=== PATIENT | male | born 1985 | race Caucasian/White ===

== ENCOUNTER → 2020-08-06 12:54 | Outpatient (CLI) | payer OTHER, SELFPAY ==
--- NOTE | ~2020-08-06 | XR_ITS ---
XR ribs RT 2V DATE: 08/06/2020 13:20 INDICATION: Anterior right chest lump in line with nipple and xiphoid process TECHNIQUE: 3 views COMPARISON: None FINDINGS: No right rib fracture or bone destruction is evident. The right lung is clear. No right ple ural effusion or pneumothorax. IMPRESSION: Negative right ribs Reviewed, dictated and finalized at location A. WORKER IMPRESSION: Negative right ribs
== END ==
PROVIDERS: PCP Nurse Practitioner Family; Visit Provider Nurse Practitioner Family
DX: N64.59 Other signs and symptoms in breast (principal)
CPT/HCPCS: 71100

== ENCOUNTER 2021-01-12 12:23 | Emergency (ER) | payer OTHER, SELFPAY ==
--- NOTE | ~2021-01-12 | XR_ITS ---
[id number] DATE: 01/12/2021 13:02 INDICATION: Fall against within pole. Proximal lateral rib pain. TECHNIQUE: PA chest. 3 views of the left ribs. COMPARISON: None FINDINGS: No left rib fracture is evident. Normal heart size. No hilar or mediastinal enlargement. The lungs are clear of infiltrate or consolid ation. No pleural effusion or pulmonary vascular congestion or pneumothorax. Included skeletal struct ures are unremarkable. IMPRESSION: Negative Reviewed, dictated and finalized at [facility]. Reviewed, dictated and finalized at location B. IMPRESSION: Negative
[2021-01-12 12:35] VITALS: BP 126/85; PULSE 69; RESP 16; TEMP 37.2; O2SAT 100
--- NOTE | 2021-01-12 13:19 | ED.FALL ---
HPI - Fall General Chief Complaint: Fall Stated Complaint: Pain on left side under Arm Time Seen by Provider: 01/12/21 13:20 Source: patient and RN notes reviewed Mode of arrival: ambulatory Limitations: no limitations History of Present Illness HPI Narrative: 35-year-old male presents with concern for left rib pain. Reports while working yesterday he slipped down a hill and landed onto a pole in the ground hitting his left rib area. He reports pain with deep breathing. He denies bruising, open skin, deformity, trouble breathing, cough. He denies intervention. complaint: fall Related Data Home Medications Medication Instructions Recorded Confirmed No Home Medications 01/12/21 01/12/21 Allergies Allergy/AdvReac Type Severity Reaction Status Date / Time No Known Allergies Allergy Verified 01/12/21 12:48 Review of Systems Review of Systems: CONSTITUTIONAL: Denies malaise, chills, sweats, or fever. CARDIOVASCULAR: Denies chest pain, palpitations, or edema. RESPIRATORY: Denies cough or dyspnea. SKIN: Denies lacerations, abrasions MUSCULOSKELETAL: Reports left rib pain with deep breathing All systems reviewed & are unremarkable except as noted in HPI and below PMFSH Comments At time of signature, agree with nursing past medical, surgical, social and family history. There is no relevant family history pertinent to the presenting complaint Exam Narrative: GENERAL: Well-appearing, well-nourished, and in no acute distress. HEAD: Normocephalic, atraumatic. EYES: PERRLA, conjunctivae clear ENT: Mucous membranes moist. NECK: Supple. CHEST: No respiratory distress. Clear to auscultation. No bony deformities, no asymmetry. Speaks in full sentences. No rib tenderness to palpation HEART: Regular rate and rhythm. No murmur heard. SKIN: Warm, dry, no rash. No erythema, ecchymosis noted to the left ribs NEURO: Alert and oriented x3. PSYCH: Normal mood and affect Course Course Emergency Course: Patient is aware of diagnosis, understands and agrees to treatment plan. Anticipatory guidance given. Patient agrees to follow-up as directed and is aware of reasons to seek care at the emergency department. Portions of this record may have been created with voice recognition software Vital Signs Vital signs: Vital Signs Temperature 99 F 01/12/21 12:35 Pulse Rate 69 01/12/21 12:35 Respiratory Rate 16 01/12/21 12:35 Blood Pressure 126/85 01/12/21 12:35 Pulse Oximetry 100 01/12/21 12:35 Temperature 99 F 01/12/21 12:35 Pulse Rate 69 01/12/21 12:35 Respiratory Rate 16 01/12/21 12:35 Blood Pressure 126/85 01/12/21 12:35 Pulse Oximetry 100 01/12/21 12:35 Reviewed. Pt has been instructed to follow up with his primary care provider within the next week regarding his elevated blood pressure today. MDM - Fall MDM Narrative Medical decision making narrative: Patients injury and pain is consistent with musculoskeletal etiology. No signs of neurological or vascular compromise on exam. Compartments and tissues are soft without signs of compartment syndrome. Pain is felt appropriate for further evaluation on an outpatient basis. Imaging Data My impression: Images reviewed, interpreted by radiologist, agree, see report. Radiologist's impression: [id number] DATE: 01/12/2021 13:02 INDICATION: Fall against within pole. Proximal lateral rib pain. TECHNIQUE: PA chest. 3 views of the left ribs. COMPARISON: None FINDINGS: No left rib fracture is evident. Normal heart size. No hilar or mediastinal enlargement. The lungs are clear of infiltrate or consolidation. No pleural effusion or pulmonary vascular congestion or pneumothorax. Included skeletal structures are unremarkable. IMPRESSION: Negative Critical Care Time Critical Care Time Critical Care Time: No Discharge Plan Discharge Clinical Impression: Contusion of rib on left side Qualifiers: Encounter type: initial encounter Q
== END 2021-01-12 13:30 | disposition home or self-care (01) ==
PROVIDERS: Emergency Provider Nurse Practitioner; PCP Nurse Practitioner Family
DX: S20.212A Contusion of left front wall of thorax, initial encounter (principal); W17.81XA Fall down embankment (hill), initial encounter
CPT/HCPCS: 71101; 99213; G0463

== ENCOUNTER 2022-10-18 14:20 | Emergency (ER) | payer OTHER, SELFPAY ==
--- NOTE | ~2022-10-18 | XR_ITS ---
EXAM: XR ankle LT min 3V DATE: 10/18/2022 14:41 HISTORY: INVERSION INJURY, LATERAL ANKLE SWELLING/PAIN . COMPARISON: None available. FINDINGS: Normal mineralization. Smoothly marginated, old avulsion fractures adjacent to the tips of the medial and lateral malleoli. No acute fracture or dislocation. No lytic or blastic lesion. 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 Osseous excrescence off the superior aspect of t he anterior talus. Joint spaces are maintained. No erosion or periosteal change. Lateral soft tissue swelling. IMPRESSION: No acute osseous finding in the left ankle. Reviewed, dictated and finalized at location [facility].
[2022-10-18 14:30] VITALS: BP 137/86; PULSE 71; RESP 16; TEMP 36.7; O2SAT 99
--- NOTE | 2022-10-18 15:37 | ED.LOWEXIN ---
HPI - Extremity Injury (Lower) General Chief Complaint: Extremity Injury, Lower Stated Complaint: left ankle injury Time Seen by Provider: 10/18/22 15:28 Source: patient and RN notes reviewed Mode of arrival: ambulatory Limitations: no limitations History of Present Illness HPI Narrative: 37-year-old male presents with concern for left ankle injury. He reports his playing basketball last night when he rolled ankle. He reports lateral pain and swelling. Reports it hurts to walk on. He reports history of sprains to his ankles. He works a [employer] MD complaint: ankle injury Related Data Home Medications Medication Instructions Recorded Confirmed No Home Medications 01/12/21 10/18/22 Allergies Allergy/AdvReac Type Severity Reaction Status Date / Time No Known Allergies Allergy Verified 10/18/22 14:55 Review of Systems Review of Systems: CONSTITUTIONAL: Denies malaise, chills, sweats, or fever. SKIN: Denies rash or itching, open skin, laceration, abrasion, redness, warmth MUSCULOSKELETAL: Reports left ankle pain, bruising, swelling NEUROLOGIC: Denies numbness, weakness All systems reviewed & are unremarkable except as noted in HPI and below PMFSH Comments At time of signature, agree with nursing past medical, surgical, social and family history. There is no relevant family history pertinent to the presenting complaint Exam Narrative: GENERAL: Well-appearing, well-nourished, and in no acute distress. HEAD: Normocephalic, atraumatic. EYES: PERRLA, conjunctivae clear NECK: Supple. CHEST: Speaks in full sentences. No respiratory distress. HEART: Regular rate and rhythm. Normal and equal peripheral pulses. EXTREMITIES: Left ankle, foot, digits have grossly normal strength and sensation, grossly normal range of motion. Lateral ankle edema, ecchymosis. 5/5 strength with ankle in digit flexion and extension. Normal sensation with sensitivity to light touch and pain. No point tenderness. No open wounds, no skin tenting, no devitalized tissue or atrophy, no trophic changes, no obvious deformity, alignment normal, nearby joints and structures intact. Distal pulses palpable and equal bilaterally, skin warm, dry, pink. Capillary refill less than 3 seconds. SKIN: Warm, dry, no rash. NEURO: Alert and oriented x3. PSYCH: Normal mood and affect Course Course Emergency Course: Patient is aware of diagnosis, understands and agrees to treatment plan. Anticipatory guidance given. Patient agrees to follow-up as directed and is aware of reasons to seek care at the emergency department. Portions of this record may have been created with voice recognition software Level of Care: Express Care Visit Vital Signs Vital signs: Vital Signs Temperature 98.1 F 10/18/22 14:30 Pulse Rate 71 10/18/22 14:30 Respiratory Rate 16 10/18/22 14:30 Blood Pressure 137/86 10/18/22 14:30 Pulse Oximetry 99 10/18/22 14:30 Oxygen Delivery Room Air 10/18/22 14:30 Temperature 98.1 F 10/18/22 14:30 Pulse Rate 71 10/18/22 14:30 Respiratory Rate 16 10/18/22 14:30 Blood Pressure 137/86 10/18/22 14:30 Pulse Oximetry 99 10/18/22 14:30 Oxygen Delivery Room Air 10/18/22 14:30 Reviewed. MDM - Extremity Injury (Lower) MDM Narrative Medical decision making narrative: Patients injury and pain is consistent with musculoskeletal etiology. No signs of neurological or vascular compromise on exam. Compartments and tissues are soft without signs of compartment syndrome. Pain is felt appropriate for further evaluation on an outpatient basis. Critical Care Time Critical Care Time Critical Care Time: No Discharge Plan Discharge Clinical Impression: Ankle sprain and strain Patient Disposition: Home, Self-Care Condition: Stable Instructions: Ankle Sprain (ED) Additional Instructions: Avoid activities that cause pain until the pain subsides. Ice to the area 20-30 minutes 4-6 times
== END 2022-10-18 15:40 | disposition home or self-care (01) ==
PROVIDERS: Emergency Provider Nurse Practitioner
DX: S93.402A Sprain of unspecified ligament of left ankle, initial encounter (principal); S96.912A Strain of unspecified muscle and tendon at ankle and foot level, left foot, initial encounter; X50.9XXA Other and unspecified overexertion or strenuous movements or postures, initial encounter; Y93.67 Activity, basketball
CPT/HCPCS: 73610; 99213; G0463

== ENCOUNTER 2023-12-03 18:13 | Emergency (ER) | payer OTHER, SELFPAY ==
[2023-12-03 18:21] VITALS: BP 128/78; PULSE 70; RESP 20; TEMP 37.1; O2SAT 98
--- NOTE | 2023-12-03 18:23 | ED.BACK ---
HPI - Back Pain/Injury General Chief Complaint: Back Pain/Injury Stated Complaint: Tweaked back / needs note Time Seen by Provider: 12/03/23 18:23 Source: patient Mode of arrival: ambulatory Limitations: no limitations History of Present Illness HPI Narrative: 38-year-old male presented for complaint of right lower back pain. Onset last night after playing basketball. He denies specific injury. He states he has had pain to that site in the past and feels it is flared up. Pain only with certain movements. He states he called off of work and the employer is requesting patient be evaluated. Denies pain radiating into the hips or legs, numbness, tingling, weakness of the lower extremities, or change in gait, saddle paresthesia or loss of bowel or bladder. Has not taken anything for pain. Related Data Home Medications Medication Instructions Recorded Confirmed No Home Medications 01/12/21 10/18/22 Allergies Allergy/AdvReac Type Severity Reaction Status Date / Time No Known Allergies Allergy Verified 10/18/22 14:55 Review of Systems Review of Systems: CONSTITUTIONAL: Denies body aches, fever, chills EYES: Denies visual changes CARDIOVASCULAR: Denies chest pain, palpitations, or edema. RESPIRATORY: Denies cough or dyspnea. GASTROINTESTINAL: Denies abdominal pain, nausea, vomiting, or diarrhea. SKIN: Denies rash, itching, or wounds. MUSCULOSKELETAL: reports back pain NEUROLOGIC: Denies headache, numbness, tingling, or weakness. All systems reviewed & are unremarkable except as noted in HPI and below PMFSH Comments At time of signature, I have reviewed and agree with nursing past medical, surgical, social and family history unless otherwise noted. Please see nursing chart for further information. There is no relevant family history pertinent to the presenting complaint Exam Narrative: GENERAL: Well-appearing CHEST: Speaks in full sentences. No respiratory distress. HEART: Regular rate and rhythm. Normal and equal peripheral pulses. MUSC: No Vertebral point or paraspinal tenderness. BLEs with normal strength and sensation, normal range of motion. No open wounds, or obvious deformity; alignment normal, pulse palpable and equal bilaterally, skin warm, dry, pink. Capillary refill less than 3 seconds. Gait steady. SKIN: Warm, dry, no rash. NEURO: Alert and oriented x3. Course Course Emergency Course: Patient is aware of diagnosis, understands and agrees to treatment plan. Anticipatory guidance given. Patient agrees to follow-up as directed and is aware of reasons to seek care at the emergency department. Portions of this record may have been created with voice recognition software Level of Care: Express Care Visit Vital Signs Vital signs: Vital Signs Temperature 98.8 F 12/03/23 18:21 Pulse Rate 70 12/03/23 18:21 Respiratory Rate 20 12/03/23 18:21 Blood Pressure 128/78 12/03/23 18:21 Pulse Oximetry 98 12/03/23 18:21 Oxygen Delivery Room Air 12/03/23 18:21 Temperature 98.8 F 12/03/23 18:21 Pulse Rate 70 12/03/23 18:21 Respiratory Rate 20 12/03/23 18:21 Blood Pressure 128/78 12/03/23 18:21 Pulse Oximetry 98 12/03/23 18:21 Oxygen Delivery Room Air 12/03/23 18:21 Reviewed MDM - Back Pain/Injury MDM Narrative Medical decision making narrative: discussed physical exam findings. Advised supportive measures and s/s to go to the ER. Pt is stable and appropriate for outpt treatment and follow up with pcp. Differential Diagnosis Differential diagnosis: Likely lumbar radiculopathy, sciatica, strain of lumbar region, renal colic, pyelonephritis and discitis Discharge Plan Discharge Clinical Impression: Strain of lumbar region Patient Disposition: Home, Self-Care Condition: Stable Instructions: Antibiotic Form, Low Back Strain (ED) Additional Instructions: Avoid lifting. pushing. pulling, running, or anything that worsens the pain.
== END 2023-12-03 18:36 | disposition home or self-care (01) ==
PROVIDERS: Emergency Provider Nurse Practitioner Family; PCP Nurse Practitioner Family
DX: S39.012A Strain of muscle, fascia and tendon of lower back, initial encounter (principal); X58.XXXA Exposure to other specified factors, initial encounter; Y93.67 Activity, basketball
CPT/HCPCS: 99212; G0463